=== PATIENT | male | born 1960 | race Caucasian/White ===

== ENCOUNTER → 2016-07-27 | Outpatient (CLI) | payer BC ==
[2016-07-27 09:21] LABS: CHLORIDE,CL 105 mmol/L (98-110); SODIUM,NA 141 mmol/L (136-146)
== END ==
LOC: MW.CHFP 08:32
PROVIDERS: ATTEND Student in an Organized Health Care Education/Training Program
DX: E78.1 Pure hyperglyceridemia (principal); I10 Essential (primary) hypertension; E11.65 Type 2 diabetes mellitus with hyperglycemia
CPT/HCPCS: 36415; 80053; 80061; 82044; 83036

== ENCOUNTER 2018-09-02 06:36 | Inpatient (IN) | payer BC ==
[~2018-09-02 06:36] MED LIST: Sodium Chloride 0.9% 10 ML SDV IV PRN; Sodium Chloride 0.9% 10 ML Syringe FLUSH PRN; Sodium Chloride 0.9% 2.5 ML Syringe FLUSH PRN; ceFAZolin 2 GM in Premix Bag 1 BAG IV ONE
[2018-09-02] MEDS: Lactated Ringers 1,000 ML IV SCH ×2 (06:50→14:09)
[2018-09-02] MEDS ORDERED: Ondansetron 4 MG/2 ML SDV ONE (07:06)
[2018-09-02] MEDS ORDERED: Midazolam 1 MG/ML 2 ML SDV ONE (07:07)
[2018-09-02] MEDS ORDERED: Propofol 200 MG/20 ML SDV ONE (07:07)
[2018-09-02] MEDS ORDERED: fentaNYL 100 MCG/2 ML SDV ONE ×3 (07:07→10:34)
[2018-09-02] MEDS ORDERED: ePHEDrine 50 MG/ML SDV ONE (07:08)
[2018-09-02] MEDS ORDERED: Dexamethasone 4 MG/ML 5 ML MDV ONE (07:08)
[2018-09-02] MEDS ORDERED: Rocuronium 100 MG/10 ML Syringe ONE ×2 (07:09→10:02)
[2018-09-02] MEDS ORDERED: Scopolamine 1.5 MG Transdermal Patch TRDERM PRN (07:11)
--- NOTE | 2018-09-02 07:11 | PCM.PREANE ---
Preanesthetic Assessment - Anesthesia/Transfusion/Family Hx Anesthesia History: Prior Anesthesia Without Reaction Family History of Anesthesia Reaction: No Transfusion History: No Prior Transfusion(s) Intubation History: Unknown - Review of Systems General: No Symptoms Pulmonary: No Symptoms Cardiovascular: No Symptoms Gastrointestinal: No Symptoms Neurological: No Symptoms Other: Reports: None - Physical Assessment O2 Sat by Pulse Oximetry: 94 Respiratory Rate: 16 Vital Signs: Last Vital Signs Temp 36.0 C 09/02/18 07:00 Pulse 66 09/02/18 07:00 Resp 16 09/02/18 07:00 BP 11/76 L 09/02/18 07:00 Pulse Ox 94 L 09/02/18 07:00 Height: 5 ft 6 in Weight: 95.254 kg ASA Class: 3 Mental Status: Alert & Oriented x3 Airway Class: Mallampati = 2 Dentition: Reports: Normal Dentition Thyro-Mental Finger Breadths: 2 Mouth Opening Finger Breadths: 3 ROM/Head Extension: Full Lungs: Clear to Auscultation, Normal Respiratory Effort Cardiovascular: Regular Rate, Regular Rhythm - Allergies Allergies/Adverse Reactions: Allergies Allergy/AdvReac Type Severity Reaction Status Date / Time No Known Allergies Allergy Verified 08/29/18 10:06 - Acknowledgements Anesthesia Type Planned: General Anesthesia Pt an Appropriate Candidate for the Planned Anesthesia: Yes Alternatives and Risks of Anesthesia Discussed w Pt/Guardian: Yes Pt/Guardian Understands and Agrees with Anesthesia Plan: Yes PreAnesthesia Questionnaire - Past Health History Medical/Surgical History: Denies Medical/Surgical History HEENT History: Reports: Other (See Below) Other HEENT History: wears glasses Cardiovascular History: Reports: High Cholesterol, Hypertension Respiratory History: Reports: SOB (when walking upstairs 10-15-20 stairs), Other (See Below) Other Respiratory History: thinks he may have sleep apnea Gastrointestinal History: Reports: Colon Polyp, Diverticulosis Other Gastrointestinal History: occasional heartburn Genitourinary History: Reports: Renal Calculus Musculoskeletal History: Reports: Arthritis (knees), Fracture Other Musculoskeletal History: hx of fx right arm and clavicle Neurological History: Reports: None Psychiatric History: Reports: None Endocrine/Metabolic History: Reports: Diabetes, Type II, Obesity/BMI 30+ Hematologic History: Reports: None Immunologic History: Reports: None Oncologic (Cancer) History: Reports: Basal Cell Carcinoma, Prostate Other Oncologic History: removed from head (gnosticism area) - Past Surgical History HEENT Surgical History: Reports: Tonsillectomy GI Surgical History: Reports: Colonoscopy Male Surgical History: Reports: Other (See Below) Other Male Surgeries/Procedures: Ureteroscopy with stent placement Musculoskeletal Surgical History: Reports: ORIF Other Musculoskeletal Surgeries/Procedures:: hx of ORIF right arm- hardware removed Dermatological Surgical History: Reports: Skin Biopsy - SUBSTANCE USE Smoking Status *Q: Former Smoker (quit 10 years ago) Tobacco Use Within Last Twelve Months: No Recreational Drug Use History: Yes Recreational Drug Type: Reports: Marijuana/Hashish - HOME MEDS Home Medications: Home Meds Aspirin [Adult Low Dose Aspirin EC] 81 mg PO QAM 04/08/18 [History] Lisinopril 5 mg PO QAM 04/08/18 [History] atorvaSTATin Calcium [Atorvastatin Calcium] 5 mg PO BEDTIME 04/08/18 [History] metFORMIN HCl [Glucophage] 500 mg PO BIDMEALS 04/08/18 [History] - CURRENT (IN HOUSE) MEDS Current Meds: Current Medications Lactated Ringer's (Ringers, Lactated) 1,000 mls @ 200 mls/hr IV ASDIRECTED ABAD Last Admin: 09/02/18 06:50 Dose: 200 mls/hr Sodium Chloride (Saline Flush) 10 ml FLUSH ASDIRECTED PRN PRN Reason: Keep Vein Open Sodium Chloride (Saline Flush) 2.5 ml FLUSH ASDIRECTED PRN PRN Reason: Keep Vein Open Sodium Chloride (Normal Saline) 10 ml IV ASDIRECTED PRN PRN Reason: IV Use Discontinued Medications Cefazolin Sodium/Dextrose 2 gm (/ Premix) 50 mls @ 100 mls/hr IV ONCALL ONE Stop: 09/02/18 00:34
[2018-09-02] MEDS ORDERED: Sodium Chloride 0.9% 20 ML ONE ×2 (07:12→08:42)
[2018-09-02] MEDS ORDERED: Sugammadex Sodium 200 MG/2 ML VIAL ONE ×2 (07:17→12:09)
[2018-09-02 07:27] LABS: CHLORIDE,CL 105 mmol/L (98-107); SODIUM,NA 139 mmol/L (136-148)
[2018-09-02] MEDS ORDERED: Glycopyrrolate 0.2 MG/ML SDV ONE (07:34)
[2018-09-02] MEDS ORDERED: Gentamicin 40 MG/ML 2 ML Vial ONE (07:51)
[2018-09-02] MEDS ORDERED: HYDROmorphone 2 MG/ML Syringe ONE ×2 (08:37→11:51)
[2018-09-02] MEDS ORDERED: ceFAZolin 1 GM Vial ONE (08:42)
[2018-09-02] MEDS ORDERED: fentaNYL 250 MCG/5 ML SDV ONE (08:45)
[2018-09-02] MEDS ORDERED: Hetastarch in NS 500 ML ONE (09:00)
[2018-09-02] MEDS ORDERED: Desflurane 240 ML Bottle ONE (11:01)
[2018-09-02] MEDS ORDERED: ceFAZolin 1 GM in Premix Bag 1 BAG IV SCH (12:45)
[2018-09-02] MEDS ORDERED: Furosemide 10 MG in Sodium Chloride 0.9% 50 ML IV STA (13:03)
[2018-09-02] MEDS ORDERED: Furosemide 20 MG/2 ML VIAL ONE (13:05)
[2018-09-02] MEDS ORDERED: Furosemide 20 MG/2 ML VIAL IVPUSH ONE (13:15)
--- NOTE | 2018-09-02 13:46 | PCM.POSTAN ---
POST ANESTHESIA ASSESSMENT - MENTAL STATUS Mental Status: Somnolent - VITAL SIGNS Pulse Rate: 94 SaO2: 94 Resp Rate: 14 Blood Pressure: 125/71 Temperature: 36.4 C - RESPIRATORY Respiratory Status: Respiratory Rate WNL Free Text/Narrative:: Thick neck. Snores at times. Maintaining Sa02's - CARDIOVASCULAR CV Status: Pulse Rate WNL - GASTROINTESTINAL GI Status: No Symptoms - PAIN Pain Score: 0 - POST OP HYDRATION Hydration Status: Adequate & Stable (Doing well. Will go to ICU-1 for close post-op monitoring.)
[2018-09-02] MEDS: ceFAZolin 1 GM in Premix Bag 1 BAG IV SCH ×2 (14:23→20:58)
--- NOTE | 2018-09-02 17:54 | OR ---
SURGEON: Janie Jeter M.D. DATE OF PROCEDURE: 09/02/2018 PREOPERATIVE DIAGNOSIS: Adenocarcinoma of the prostate. POSTOPERATIVE DIAGNOSIS: Adenocarcinoma of the prostate. OPERATION: Radical retropubic prostatectomy including bilateral pelvic lymph node dissection. DESCRIPTION OF PROCEDURE: The patient was given general anesthesia. He is in the supine position. Lower abdomen and external genital area were all prepped and draped in sterile drapes. The table was flexed approximately 15 degrees. Midline incision made between the umbilicus and pubis. Retropubic space was exposed. The obturator lymph nodes were removed on both sides. Puboprostatic ligaments were taken down. The venous plexus from the membranous urethra is controlled with 0 chromic sutures. The apex of the prostate was with sharp dissection from the membranous urethra. Dissection was continued behind the prostate that from the anterior wall of the rectum. Seminal vesicles included the specimen. Vas deferens is occluded and cut. Anastomosis between the bladder neck and the membranous urethra is completed using 2-0 chromic sutures at the 6, 8, 10, 4, 2, and 12 o'clock positions. Two large [place] drains were left in. The fascia was closed with a running suture of #2 nylon. Subcutaneous tissues were reapproximated with 3-0 chromic. Skin was closed with elisha. The patient tolerated the procedure well and was moved to recovery room in good condition. ESTIMATED BLOOD LOSS: 1000 mL. PRIMARY SURGEON: Janie Jeter M.D. TATTOO DESIGNER: Dr. Duffy. RICH / LULU /[id number]
[2018-09-02] MEDS ORDERED: Acetaminophen/HYDROcodone 325-5 MG Tab ONE (18:56)
[2018-09-02] MEDS: Acetaminophen/HYDROcodone 325-5 MG Tab PO PRN (19:00)
[2018-09-02] MEDS: atorvaSTATin 10 MG Tab PO SCH (20:57)
[2018-09-03] MEDS: Lactated Ringers 1,000 ML IV SCH ×3 (01:37→18:02)
[2018-09-03] MEDS: Acetaminophen/HYDROcodone 325-5 MG Tab PO PRN ×5 (03:23→22:22)
[2018-09-03] MEDS: ceFAZolin 1 GM in Premix Bag 1 BAG IV SCH ×3 (05:00→20:03)
--- NOTE | 2018-09-03 07:16 | PCM48HPAN ---
Post Anesthesia Note - EVALUATION WITHIN 48HRS OF ANESTHETIC Vital Signs in Normal Range: Yes Patient Participated in Evaluation: Yes Respiratory Function Stable: Yes Airway Patent: Yes Cardiovascular Function Stable: Yes Hydration Status Stable: Yes Pain Control Satisfactory: Yes Nausea and Vomiting Control Satisfactory: Yes Mental Status Recovered: Yes Pulse Rate: 94 SaO2: 95 Resp Rate: 20 Temperature: 36.4 C Blood Pressure: 125/71 - COMMENTS/OBSERVATIONS Free Text/Narrative:: Doind well. A&O x3. Pain ~3. Says basically soreness. Progressing well. No problems noted at present.
[2018-09-03] MEDS ORDERED: Morphine PF 30 MG/30 ML PCA Vial IV SCH (10:00)
--- NOTE | 2018-09-03 10:08 | PCM.SN ---
- Free Text/Narrative Note: / Doing well vs stable labs noted, lungs clear, abd good bowel sounds. plan more incentive spirometry advance diet Out of bed reduce iv fluid
[2018-09-03] MEDS: Enoxaparin 40 MG/0.4 ML Syringe SUBCUT SCH (12:17)
[2018-09-03] MEDS ORDERED: Ondansetron 4 MG/2 ML SDV IVPUSH PRN (13:00)
[2018-09-03] MEDS ORDERED: Belladonna Alkaloids/Opium 16.2-30 MG Supp RECTAL PRN (19:26)
[2018-09-03] MEDS: atorvaSTATin 10 MG Tab PO SCH (20:11)
[2018-09-04] MEDS: Acetaminophen/HYDROcodone 325-5 MG Tab PO PRN ×4 (02:50→20:26)
[2018-09-04] MEDS: ceFAZolin 1 GM in Premix Bag 1 BAG IV SCH ×3 (04:23→20:06)
[2018-09-04] MEDS: Lactated Ringers 1,000 ML IV SCH ×2 (04:26→15:26)
[2018-09-04 05:49] LABS: CHLORIDE,CL 102 mmol/L (98-107); SODIUM,NA 135 mmol/L (136-148)
--- NOTE | 2018-09-04 09:59 | PCM.SN ---
- Free Text/Narrative Note: 09/04 doing well, VS Stable, good urine output, good b sounds
[2018-09-04] MEDS: Lisinopril 5 MG Tab PO SCH (10:44)
[2018-09-04] MEDS: Enoxaparin 40 MG/0.4 ML Syringe SUBCUT SCH (13:18)
[2018-09-04] MEDS: metFORMIN 500 MG Tab PO SCH (16:25)
[2018-09-04] MEDS: Famotidine 20 MG/2 ML SDV IVPUSH SCH (18:25)
[2018-09-04] MEDS: atorvaSTATin 10 MG Tab PO SCH (20:06)
[2018-09-05] MEDS: Lactated Ringers 1,000 ML IV SCH (01:54)
[2018-09-05] MEDS: Acetaminophen/HYDROcodone 325-5 MG Tab PO PRN ×4 (02:28→17:44)
[2018-09-05] MEDS: ceFAZolin 1 GM in Premix Bag 1 BAG IV SCH ×2 (03:57→13:05)
[2018-09-05] MEDS: Lisinopril 5 MG Tab PO SCH (08:15)
[2018-09-05] MEDS: metFORMIN 500 MG Tab PO SCH ×2 (08:16→17:44)
[2018-09-05] MEDS: Famotidine 20 MG/2 ML SDV IVPUSH SCH (08:16)
[2018-09-05] MEDS: Enoxaparin 40 MG/0.4 ML Syringe SUBCUT SCH (13:04)
--- NOTE | 2018-09-05 20:54 | DISCH ---
DATE OF DISCHARGE: 09/05/2018 PRIMARY CARE PHYSICIAN: Farhan Pickett A 58-year-old. He is now postop day 3 following radical retropubic prostatectomy for adenocarcinoma of the prostate, grade 3 + 3. He had an uneventful postoperative course. We lost close to a 1000 mL of blood during surgery. His hemoglobin postop has been stable, and the most recent one today was 11. He is being discharged. His vital signs are stable and normal. His white blood count, however, is 20. He is able to eat. He had a bowel movement. His urine is clear. His O2 sats are normal. Listening to his lungs, I suspect he has some atelectasis of the right lower lung. He is again instructed to use the incentive spirometer, and he is sent home on Levaquin 750 one daily for the next 10 days. I will see him this coming Saturday to take the drains and the elisha out. He was instructed to come back and see me if he starts running a fever. RICH / LULU /[id number]
== END 2018-09-05 19:25 | disposition home or self-care (01) | DRG 480 ==
LOC: OBSVTOIN 06:36 → MW.ICU 06:36 → INTOOBSV 06:36
PROVIDERS: ADMIT Urology; ATTEND Urology
PROC: 0VT00ZZ Resection of Prostate, Open Approach (ICD-10-PCS; principal; 2018-09-02)
DX: C61 Malignant neoplasm of prostate (principal); E78.00 Pure hypercholesterolemia, unspecified; I10 Essential (primary) hypertension; M19.91 Primary osteoarthritis, unspecified site; E11.9 Type 2 diabetes mellitus without complications; E66.9 Obesity, unspecified; Z87.891 Personal history of nicotine dependence; Z79.82 Long term (current) use of aspirin; Z86.010 Personal history of colon polyps; Z79.84 Long term (current) use of oral hypoglycemic drugs; Z68.33 Body mass index [BMI] 33.0-33.9, adult
CPT/HCPCS: 36415; 51702; 80048; 82962; 85014; 85018; 85025; 86850; 86900; 86901; 86920; 86921; 86922; A4217; A9270-GY; J0131; J0690; J1100; J1170; J1580; J1650; J2250; J2274; J2405; J2704; J3010; J3490; J7120

== ENCOUNTER 2021-04-21 06:42 | Day surgery (SDC) | payer BC ==
[~2021-04-21 06:42] MED LIST changes: +Lactated Ringers 1,000 ML IV SCH; -Sodium Chloride 0.9% 10 ML SDV IV PRN; -Sodium Chloride 0.9% 10 ML Syringe FLUSH PRN; -Sodium Chloride 0.9% 2.5 ML Syringe FLUSH PRN; -ceFAZolin 2 GM in Premix Bag 1 BAG IV ONE
[2021-04-21] MEDS ORDERED: Propofol 200 MG/20 ML SDV ONE ×2 (06:54→07:31)
[2021-04-21] MEDS ORDERED: Midazolam 1 MG/ML 2 ML SDV ONE (06:54)
[2021-04-21] MEDS ORDERED: fentaNYL 100 MCG/2 ML SDV ONE (06:54)
[2021-04-21] MEDS ORDERED: Lactated Ringers 1,000 ML IV SCH (08:45)
== END 2021-04-21 09:11 | disposition home or self-care (01) ==
LOC: MW.SDS 06:42
PROVIDERS: ATTEND Surgery
DX: D12.2 Benign neoplasm of ascending colon (principal); D12.3 Benign neoplasm of transverse colon; K63.89 Other specified diseases of intestine; E11.9 Type 2 diabetes mellitus without complications; E78.1 Pure hyperglyceridemia; I10 Essential (primary) hypertension; Z79.899 Other long term (current) drug therapy; Z79.84 Long term (current) use of oral hypoglycemic drugs; Z98.890 Other specified postprocedural states; Z80.0 Family history of malignant neoplasm of digestive organs; Z87.891 Personal history of nicotine dependence; Z85.46 Personal history of malignant neoplasm of prostate
CPT/HCPCS: 45380; 82947; J2250; J2704; J3010; J7120

== ENCOUNTER 2021-11-13 07:17 | Day surgery (SDC) | payer BC ==
[2021-11-13] MEDS ORDERED: fentaNYL 100 MCG/2 ML SDV ONE ×2 (07:22→09:26)
[2021-11-13] MEDS ORDERED: Propofol 200 MG/20 ML SDV ONE ×2 (07:22→09:26)
[2021-11-13] MEDS ORDERED: Lidocaine 2% 5 ML SDV ONE (09:26)
[2021-11-13] MEDS ORDERED: Lactated Ringers 1,000 ML IV SCH (10:30)
== END 2021-11-13 10:50 | disposition home or self-care (01) ==
LOC: MW.SDS 07:17
PROVIDERS: ATTEND Surgery
DX: Z12.11 Encounter for screening for malignant neoplasm of colon (principal); D12.2 Benign neoplasm of ascending colon; D12.5 Benign neoplasm of sigmoid colon; E11.65 Type 2 diabetes mellitus with hyperglycemia; I10 Essential (primary) hypertension; E78.1 Pure hyperglyceridemia; F17.200 Nicotine dependence, unspecified, uncomplicated; G47.30 Sleep apnea, unspecified; Z86.010 Personal history of colon polyps; Z79.84 Long term (current) use of oral hypoglycemic drugs; Z79.82 Long term (current) use of aspirin; Z98.890 Other specified postprocedural states
CPT/HCPCS: 45380; 45381; 82947; J2704; J3010; 00812

== ENCOUNTER 2023-12-16 06:23 | Day surgery (SDC) | payer BC ==
[2023-12-16] MEDS: Lactated Ringers 1,000 ML IV SCH (06:49)
[2023-12-16] MEDS ORDERED: propofoL 50 ML ONE (07:23)
[2023-12-16] MEDS ORDERED: Lactated Ringers 1,000 ML IV SCH (09:00)
== END 2023-12-16 10:25 | disposition home or self-care (01) ==
LOC: MW.SDS 06:23
PROVIDERS: ATTEND Surgery
DX: Z12.11 Encounter for screening for malignant neoplasm of colon (principal); D12.5 Benign neoplasm of sigmoid colon; K52.9 Noninfective gastroenteritis and colitis, unspecified; Z86.010 Personal history of colon polyps; I10 Essential (primary) hypertension; E11.9 Type 2 diabetes mellitus without complications; E78.1 Pure hyperglyceridemia; Z79.84 Long term (current) use of oral hypoglycemic drugs; Z79.899 Other long term (current) drug therapy
CPT/HCPCS: 45380; J2704; J7120; 00811

== ENCOUNTER 2025-03-08 06:46 | Day surgery (SDC) | payer BC ==
[~2025-03-08 06:46] MED LIST changes: -Lactated Ringers 1,000 ML IV SCH; +ceFAZolin 2 GM in Water For Injection, Sterile 20 ML IVPUSH ONE
[2025-03-08] MEDS ORDERED: Propofol 200 MG/20 ML SDV ONE (07:09)
[2025-03-08] MEDS ORDERED: fentaNYL 100 MCG/2 ML SDV ONE ×2 (07:09→08:15)
[2025-03-08] MEDS ORDERED: Midazolam 1 MG/ML 2 ML SDV ONE (07:09)
[2025-03-08] MEDS: Lactated Ringers 1,000 ML IV SCH (07:15)
[2025-03-08] MEDS ORDERED: dexmedeTOMIDine HCl 200 MCG/2 ML SDV ONE (07:15)
[2025-03-08] MEDS ORDERED: Ropivacaine 0.5% 5 MG/ML 30 ML SDV ONE (07:17)
[2025-03-08] MEDS ORDERED: Albuterol 0.083% 2.5 MG/3 ML Neb Soln NEB PRN (08:13)
[2025-03-08] MEDS ORDERED: fentaNYL 50 MCG/ML SDV IVPUSH PRN (08:13)
[2025-03-08] MEDS ORDERED: Naloxone 0.4 MG/ML SDV IVPUSH PRN (08:13)
[2025-03-08] MEDS ORDERED: Ondansetron 4 MG/2 ML SDV IVPUSH PRN (08:13)
[2025-03-08] MEDS ORDERED: Acetaminophen/HYDROcodone 325-5 MG Tab PO PRN (09:47)
[2025-03-08] MEDS ORDERED: Lactated Ringers 1,000 ML IV SCH (10:00)
== END 2025-03-08 13:55 | disposition home or self-care (01) ==
LOC: MW.SDS 06:46
PROVIDERS: ATTEND Surgery
DX: K40.90 Unilateral inguinal hernia, without obstruction or gangrene, not specified as recurrent (principal); E11.9 Type 2 diabetes mellitus without complications; E78.5 Hyperlipidemia, unspecified; I10 Essential (primary) hypertension; F17.210 Nicotine dependence, cigarettes, uncomplicated; Z79.84 Long term (current) use of oral hypoglycemic drugs; Z79.899 Other long term (current) drug therapy
CPT/HCPCS: 49505; C1781; J0665; J0690; J1171; J2003; J2250; J2704; J2795; J3010; J7120; 00830; 64486